=== PATIENT | female | born 1990 | race African-American/Black ===

== ENCOUNTER 2017-11-16 14:40 | Emergency (ER) | payer MEDICAID ==
[~2017-11-16] VITALS: Ht 170.2 cm; Wt 128.5 kg
[2017-11-16 16:29] LABS: MICROSCOPIC NOT IND
[2017-11-16 16:35] LABS: CULTURE INDICATED? NO
[2017-11-16 17:37] LABS: ALANINE AMINOTRANSFERASE 19 U/L (12-78); ANION GAP 6 mmol/L (5-15); CALCIUM 8.1 mg/dL (8.5-10.1); CHLORIDE 109 mmol/L (98-107); CREATININE 0.63 mg/dL (0.55-1.02)
[2017-11-16 17:54] LABS: ALKALINE PHOSPHATASE 50 U/L (45-117); BILIRUBIN,TOTAL 0.2 mg/dL (0.2-1.0); TOTAL PROTEIN 7.3 g/dL (6.4-8.2)
[2017-11-16 18:05] LABS: BASOPHILS # (AUTO) 0.05 x10^3/uL (0-0.1); BASOPHILS % (AUTO) 1 % (0-1); EOSINOPHILS # (AUTO) 0.24 x10^3/uL (0-0.4); EOSINOPHILS % (AUTO) 2 % (1-7); LYMPHOCYTES # (AUTO) 3.29 x10^3/uL (1-3.4); LYMPHOCYTES % (AUTO) 32 % (22-44); MD NO; MEAN CORPUSCULAR HGB CONC 32.9 g/dL (32.4-35.8); MEAN CORPUSCULAR VOLUME 82.3 fL (80-100); MEAN PLATELET VOLUME 9.4 fL (7.4-10.4); MONOCYTES % (AUTO) 7 % (2-9); NEUTROPHILS # (AUTO) 6.06 x10^3/uL (1.8-6.8); NEUTROPHILS % (AUTO) 59 % (42-75); PLATELET COUNT 307 x10^3/uL (130-400); RED BLOOD COUNT 4.12 x10^6/uL (3.82-5.3); RED CELL DISTRIBUTION WIDTH 14.8 % (9.6-15.2)
[2017-11-16 18:39] VITALS: BP 119/48
== END 2017-11-16 18:41 | disposition home or self-care (01) ==
LOC: ED 17:47
DX: O26.891 Other specified pregnancy related conditions, first trimester (principal); R10.2 Pelvic and perineal pain; Z3A.12 12 weeks gestation of pregnancy
CPT/HCPCS: 36415; 76801; 80053; 81003; 84702; 85025; 99285

== ENCOUNTER 2018-01-19 08:41 | Emergency (ER) | payer MEDICAID ==
[~2018-01-19] VITALS: Ht 170.2 cm; Wt 131.0 kg
[~2018-01-19 08:41] MED LIST: PREN1TAB10 PO
[2018-01-19 08:48] VITALS: BP 136/78
== END 2018-01-19 10:15 | disposition home or self-care (01) ==
LOC: ED 09:45
DX: G44.039 Episodic paroxysmal hemicrania, not intractable (principal)
CPT/HCPCS: 99282

== ENCOUNTER 2018-03-10 09:40 | Outpatient (CLI) | payer MEDICAID, OTHER ==
[~2018-03-10] VITALS: Ht 170.2 cm; Wt 135.0 kg
[2018-03-10 10:28] LABS: MICROSCOPIC INDICATED
[2018-03-10 10:39] VITALS: BP 120/59
== END 2018-03-10 11:40 | disposition home or self-care (01) ==
LOC: LDOP 09:40
PROVIDERS: ATTEND Obstetrics & Gynecology
DX: O24.419 Gestational diabetes mellitus in pregnancy, unspecified control (principal); O26.893 Other specified pregnancy related conditions, third trimester; R10.2 Pelvic and perineal pain; Z3A.28 28 weeks gestation of pregnancy
CPT/HCPCS: 59025; 81001; 82962; 87086; 99211; G0463

== ENCOUNTER 2018-05-16 07:54 | Inpatient (IN) | payer OTHER ==
[~2018-05-16] VITALS: Ht 170.2 cm; Wt 138.6 kg
[2018-05-16] MEDS ORDERED: D5%-LACTATED RINGERS 1,000 ML IV SCH (10:11)
[2018-05-16] MEDS: LACTATED RINGERS 1,000 ML IV SCH ×2 (10:11→10:30)
[2018-05-16] MEDS ORDERED: OXYTOCIN 30U/ 0.9% NaCL 500ML 500 ML IV ONE (10:11)
[2018-05-16] MEDS ORDERED: FENTANYL PF 100 MCG/2ML ONE (10:27)
[2018-05-16] MEDS ORDERED: CALCIUM CARBONATE 500 MG TAB.CHEW PO PRN (10:30)
[2018-05-16] MEDS ORDERED: FENTANYL PF 100 MCG/2ML IVPush PRN (10:30)
[2018-05-16] MEDS ORDERED: ONDANSETRON 2MG/ML, 2ML IVPush PRN (10:30)
[2018-05-16] MEDS ORDERED: NEWBORN KIT ONE ×2 (10:35→10:43)
[2018-05-16] MEDS ORDERED: LIDOCAINE 1%, 50ML ONE ×2 (10:35→18:13)
[2018-05-16] MEDS ORDERED: OXYTOCIN 30U/ 0.9% NaCL 500ML 500 ML ONE ×2 (10:36→18:13)
[2018-05-16] MEDS ORDERED: MISOPROSTOL 200 MCG TABLET ONE ×3 (10:36→18:13)
[2018-05-16] MEDS ORDERED: LACTATED RINGERS 1,000 ML IV SCH (10:42)
[2018-05-16] MEDS ORDERED: FENTANYL/BUPIV./NS/PF 250 ML EPIDCONT SCH (10:42)
[2018-05-16 10:57] LABS: BASOPHILS # (AUTO) 0.04 x10^3/uL (0-0.1); BASOPHILS % (AUTO) 0 % (0-1); EOSINOPHILS # (AUTO) 0.11 x10^3/uL (0-0.4); EOSINOPHILS % (AUTO) 1 % (1-7); LYMPHOCYTES # (AUTO) 2.01 x10^3/uL (1-3.4); LYMPHOCYTES % (AUTO) 20 % (22-44); MD NO; MEAN CORPUSCULAR HEMOGLOBIN 26.5 pg (27.0-34.8); MEAN CORPUSCULAR HGB CONC 33.3 g/dL (32.4-35.8); MEAN CORPUSCULAR VOLUME 79.5 fL (80-100); MEAN PLATELET VOLUME 9.6 fL (7.4-10.4); MONOCYTES # (AUTO) 0.81 x10^3/uL (0.2-0.8); MONOCYTES % (AUTO) 8 % (2-9); NEUTROPHILS # (AUTO) 6.99 x10^3/uL (1.8-6.8); NEUTROPHILS % (AUTO) 70 % (42-75); PLATELET COUNT 245 x10^3/uL (130-400); RED CELL DISTRIBUTION WIDTH 14.9 % (9.6-15.2)
[2018-05-16] MEDS ORDERED: EPHEDRINE 50 MG/ML, 1ML IVPush PRN (11:00)
[2018-05-16] MEDS ORDERED: LACTATED RINGERS 1,000 ML IVBOLUS PRN (11:00)
[2018-05-16] MEDS ORDERED: NALOXONE 0.4 MG/ML, 1ML IVPush PRN (11:00)
[2018-05-16] MEDS: OXYTOCIN 30U/ 0.9% NaCL 500ML 500 ML IV SCH ×2 (11:53→21:53)
[2018-05-16] MEDS ORDERED: HYDROcodone/APAP 5/325 TABLET PO PRN (12:00)
[2018-05-16] MEDS ORDERED: CARBOPROST TROMETHAMINE 250 MCG/ML, 1ML IM PRN (12:00)
[2018-05-16] MEDS ORDERED: ONDANSETRON 2MG/ML, 2ML IV PRN (12:00)
[2018-05-16] MEDS ORDERED: OXYTOCIN 10 UNITS/ML, 1ML IM PRN (12:00)
[2018-05-16] MEDS ORDERED: METHYLERGONOVINE 0.2 MG/ML IM PRN (12:00)
[2018-05-16] MEDS ORDERED: MISOPROSTOL 200 MCG TABLET PR PRN (12:00)
[2018-05-16] MEDS ORDERED: ACETAMINOPHEN 325 MG TABLET PO PRN (12:00)
[2018-05-16] MEDS ORDERED: IBUPROFEN 600 MG TABLET ONE (12:09)
[2018-05-16] MEDS: IBUPROFEN 600 MG TABLET PO PRN ×2 (12:12→20:25)
[2018-05-16] MEDS ORDERED: OXYcodone/APAP 5/325MG TABLET ONE (13:30)
[2018-05-16] MEDS ORDERED: HYDROcodone/APAP 5/325 TABLET ONE (13:36)
[2018-05-16] MEDS: HYDROcodone/APAP 5/325 TABLET PO PRN ×3 (13:38→22:18)
[2018-05-16 13:55] VITALS: BP 131/84
[2018-05-16 16:50] VITALS: BP 136/85
[2018-05-16 18:50] VITALS: BP 134/76
[2018-05-16] MEDS: DOCUSATE 100 MG CAPSULE PO PRN (20:06)
[2018-05-17] VITALS: BP 117/81
[2018-05-17] MEDS: HYDROcodone/APAP 5/325 TABLET PO PRN ×2 (02:16→20:31)
[2018-05-17 04:02] VITALS: BP 123/79
[2018-05-17] MEDS: IBUPROFEN 600 MG TABLET PO PRN ×2 (05:30→20:30)
[2018-05-17] MEDS: DOCUSATE 100 MG CAPSULE PO PRN ×2 (07:46→20:30)
[2018-05-17 07:50] VITALS: BP 109/77
[2018-05-17] MEDS: OXYTOCIN 30U/ 0.9% NaCL 500ML 500 ML IV SCH ×2 (07:53→17:53)
[2018-05-17] MEDS ORDERED: PRENATAL VIT/IRON/FA 1 EACH TABLET PO SCH (09:00)
[2018-05-17] MEDS ORDERED: HYDR-883 PO (13:51)
[2018-05-17] MEDS ORDERED: SENN8.8S5 PO (13:52)
[2018-05-17] MEDS ORDERED: IBUP-1222 PO (13:52)
== END 2018-05-17 21:10 | disposition home or self-care (01) | DRG 774 ==
LOC: LDOP 07:54 → LDIP 10:33 → 2NW 13:25
PROVIDERS: ADMIT Obstetrics & Gynecology; ATTEND Obstetrics & Gynecology
PROC: 10E0XZZ Delivery of Products of Conception, External Approach (ICD-10-PCS; principal; 2018-05-16)
PROC: 10907ZC Drainage of Amniotic Fluid, Therapeutic from Products of Conception, Via Natural or Artificial Opening (ICD-10-PCS; 2018-05-16)
PROC: 3E033VJ Introduction of Other Hormone into Peripheral Vein, Percutaneous Approach (ICD-10-PCS; 2018-05-16)
DX: O10.92 Unspecified pre-existing hypertension complicating childbirth (principal); Z37.0 Single live birth; Z3A.38 38 weeks gestation of pregnancy
CPT/HCPCS: 36415; 85025; 86850; 86900; J3010; J2590; J7120

== ENCOUNTER 2018-05-23 10:13 | Inpatient (IN) | payer OTHER ==
[~2018-05-23] VITALS: Ht 170.2 cm; Wt 141.1 kg
[~2018-05-23 10:13] MED LIST changes: +HYDR-883 PO; +IBUP-1222 PO; +SENN8.8S5 PO
[2018-05-23] MEDS ORDERED: CEPH-368 PO (10:59)
[2018-05-23] MEDS ORDERED: SODIUM CHLORIDE FLUSH 10ML SYR IVF ONE (11:30)
[2018-05-23] MEDS ORDERED: MAALOX/HYOSCYAMINE/LIDOCAINE 45 ML BTL PO ONE (11:30)
[2018-05-23] MEDS ORDERED: MAALOX/HYOSCYAMINE/LIDOCAINE 45 ML BTL ONE (11:39)
[2018-05-23 11:51] LABS: BASOPHILS # (AUTO) 0.03 x10^3/uL (0-0.1); BASOPHILS % (AUTO) 0 % (0-1); EOSINOPHILS # (AUTO) 0.15 x10^3/uL (0-0.4); EOSINOPHILS % (AUTO) 2 % (1-7); LYMPHOCYTES # (AUTO) 2.22 x10^3/uL (1-3.4); LYMPHOCYTES % (AUTO) 27 % (22-44); MD NO; MEAN CORPUSCULAR HEMOGLOBIN 26.4 pg (27.0-34.8); MEAN CORPUSCULAR HGB CONC 33.2 g/dL (32.4-35.8); MEAN CORPUSCULAR VOLUME 79.5 fL (80-100); MEAN PLATELET VOLUME 9.1 fL (7.4-10.4); MONOCYTES # (AUTO) 0.65 x10^3/uL (0.2-0.8); MONOCYTES % (AUTO) 8 % (2-9); NEUTROPHILS # (AUTO) 5.15 x10^3/uL (1.8-6.8); NEUTROPHILS % (AUTO) 63 % (42-75); PLATELET COUNT 302 x10^3/uL (130-400); RED BLOOD COUNT 3.86 x10^6/uL (3.82-5.3); RED CELL DISTRIBUTION WIDTH 15.6 % (9.6-15.2)
[2018-05-23 12:02] LABS: ALBUMIN 2.6 g/dL (3.4-5.0); ANION GAP 12 mmol/L (5-15); CALCIUM 8.5 mg/dL (8.5-10.1); CHLORIDE 112 mmol/L (98-107)
[2018-05-23 12:11] LABS: ALANINE AMINOTRANSFERASE 276 U/L (12-78); ALKALINE PHOSPHATASE 83 U/L (45-117); BILIRUBIN,TOTAL 0.4 mg/dL (0.2-1.0); CREATININE 0.83 mg/dL (0.55-1.02); TOTAL PROTEIN 6.4 g/dL (6.4-8.2)
[2018-05-23 12:24] LABS: MICROSCOPIC INDICATED
[2018-05-23 12:25] LABS: CULTURE INDICATED? YES
[2018-05-23] MEDS ORDERED: SODIUM CHLORIDE 0.9% 1,000 ML IV ONE (12:30)
[2018-05-23] MEDS ORDERED: SODIUM CHLORIDE 0.9% 1,000ML IVBOLUS ONE (12:30)
[2018-05-23] MEDS ORDERED: POTASSIUM CHLORIDE 20 MEQ in D5%-0.45% NACL 1,000 ML IV ONE (12:44)
[2018-05-23] MEDS ORDERED: CEFOTETAN PMX 1GM/50ML 50 ML IV ONE (13:00)
[2018-05-23] MEDS ORDERED: MORPHINE SULFATE 4 MG/ML, 1ML IVPush PRN ×3 (13:00→18:00)
[2018-05-23] MEDS ORDERED: CEFOTETAN PMX 1GM/50ML 50 ML ONE (13:08)
[2018-05-23 14:34] VITALS: BP 148/88
[2018-05-23] MEDS ORDERED: D5%-0.45NACL+KCL 20MEQ 1,000 ML IV SCH (18:00)
[2018-05-23] MEDS ORDERED: FENTANYL PF 100 MCG/2ML ONE ×2 (18:52→19:45)
[2018-05-23] MEDS ORDERED: MIDAZOLAM 1 MG/ML, 2ML ONE (18:52)
[2018-05-23] MEDS ORDERED: LIDOCAINE GEL 2%, 5ML ONE (18:53)
[2018-05-23] MEDS ORDERED: CEFOTETAN 2 GM ONE (18:54)
[2018-05-23] MEDS ORDERED: KETOROLAC 30 MG/1 ML ONE (18:54)
[2018-05-23] MEDS ORDERED: ROCURONIUM 10 MG/ML,10ML ONE (18:54)
[2018-05-23] MEDS ORDERED: ACETAMINOPHEN 325 MG TABLET PO PRN (19:00)
[2018-05-23] MEDS ORDERED: HYDROmorphone 1 MG/ML, 1ML IV PRN (19:00)
[2018-05-23] MEDS ORDERED: ONDANSETRON 2MG/ML, 2ML IV PRN (19:00)
[2018-05-23] MEDS ORDERED: PROMETHAZINE 25 MG/ML, 1ML IV PRN (19:00)
[2018-05-23] MEDS ORDERED: MIDAZOLAM 1 MG/ML, 2ML IV PRN (19:00)
[2018-05-23] MEDS ORDERED: SCOPOLAMINE PATCH, 1.5MG PATCH.TD72 TD PRN (19:00)
[2018-05-23] MEDS ORDERED: hydrALAzine 20 MG/ML, 1ML IV PRN (19:00)
[2018-05-23] MEDS ORDERED: ONDANSETRON ODT 8 MG PO PRN (19:00)
[2018-05-23] MEDS ORDERED: ALBUTEROL/IPRATROPIUM 2.5MG/0.5MG, 3 ML NPPB PRN (19:00)
[2018-05-23] MEDS ORDERED: BUPIVACAINE/PF 0.5% INFIL ONE (19:13)
[2018-05-23] MEDS ORDERED: DEXAMETHASONE 4 MG/ML, 1ML ONE (19:26)
[2018-05-23] MEDS ORDERED: SUCCINYLCHOLINE 20 MG/ML, 10ML ONE (19:26)
[2018-05-23] MEDS ORDERED: PROPOFOL 10 MG/ML, 20ML ONE (19:26)
[2018-05-23] MEDS ORDERED: NEOSTIGMINE 1 MG/ML, 10ML ONE (19:26)
[2018-05-23] MEDS ORDERED: GLYCOPYRROLATE 0.2MG/1ML, 5ML ONE (19:26)
[2018-05-23] MEDS ORDERED: LABETALOL 5MG/ML, 20ML ONE (19:45)
[2018-05-23] MEDS ORDERED: OXYcodone 5 MG/5 ML ORAL.SOL UDC ONE (19:46)
[2018-05-23] MEDS: FENTANYL PF 100 MCG/2ML IV PRN ×3 (19:49→21:00)
[2018-05-23] MEDS: OXYcodone 5 MG/5 ML ORAL.SOL UDC PO PRN ×2 (19:51→22:46)
[2018-05-23] MEDS ORDERED: MEPERIDINE/PF 50 MG/ML ONE (19:55)
[2018-05-23] MEDS: MEPERIDINE/PF 25MG/0.5ML IVPush PRN (19:57)
[2018-05-23] MEDS: LABETALOL 5MG/ML, 20ML IV PRN ×2 (20:01→20:32)
[2018-05-23] MEDS ORDERED: OXYcodone 5 MG/5 ML ORAL.SOL UDC PO PRN (22:00)
[2018-05-23] MEDS ORDERED: PROMETHAZINE 25 MG/ML, 1ML IM PRN (22:00)
[2018-05-23] MEDS ORDERED: ONDANSETRON 2MG/ML, 2ML IVPush PRN (22:00)
[2018-05-23] MEDS ORDERED: OXYC-302 PO (22:01)
== END 2018-05-23 23:15 | disposition home or self-care (01) | DRG 776 ==
LOC: ED 12:42 → EDIP 12:44 → 4NOR 13:47
PROVIDERS: ADMIT Internal Medicine; ATTEND Internal Medicine
DX: O99.63 Diseases of the digestive system complicating the puerperium (principal); Z68.42 Body mass index [BMI] 45.0-49.9, adult; K80.00 Calculus of gallbladder with acute cholecystitis without obstruction; J90 Pleural effusion, not elsewhere classified; O99.215 Obesity complicating the puerperium; O24.93 Unspecified diabetes mellitus in the puerperium; O99.53 Diseases of the respiratory system complicating the puerperium; E66.01 Morbid (severe) obesity due to excess calories
CPT/HCPCS: 36415; J3490; 71046; 76700; 80053; 81001; 83690; 85025; 87086; 93005; 96361; 96365; J1100; J1885; J2175; J2250; J2704; J2710; J3010; J3480; J0330; J7030; S0074